=== PATIENT | female | born 1980 | race Caucasian/White ===

== ENCOUNTER 2022-09-06 22:58 | Emergency (ER) | payer SELFPAY ==
[~2022-09-06] VITALS: Ht 154.9 cm; Wt 54.4 kg
[2022-09-06 23:10] VITALS: BP_SYST 123
[2022-09-07] MEDS ORDERED: predniSONE 20 MG TABLET PO ONE (01:30)
[2022-09-07] MEDS ORDERED: LORATADINE 10 MG TABLET PO ONE (01:30)
[2022-09-07] MEDS ORDERED: ALBUTEROL MDI INHALATION 8 GM INH INH ONE (01:30)
[2022-09-07] MEDS ORDERED: ALBUTEROL MDI INHALATION 8 GM INH ONE (02:02)
[2022-09-07] MEDS ORDERED: PRED20TA PO (03:44)
[2022-09-07] MEDS ORDERED: LORA10TA68 PO (03:44)
[2022-09-07 04:06] VITALS: BP_SYST 119
== END 2022-09-07 04:07 | disposition home or self-care (01) ==
LOC: SED 22:58
DX: T78.40XA Allergy, unspecified, initial encounter (principal); Z79.899 Other long term (current) drug therapy; Z88.8 Allergy status to other drugs, medicaments and biological substances; Z20.822 Contact with and (suspected) exposure to COVID-19; X58.XXXA Exposure to other specified factors, initial encounter
CPT/HCPCS: 99284; 87426; 36415; 94640; 87804 ×2; 71045; J7512